=== PATIENT | male | born 1985 | race Caucasian/White ===

== ENCOUNTER 2019-02-15 00:25 | Emergency (ER) | payer BC, OTHER ==
[~2019-02-15] VITALS: Ht 175.3 cm; Wt 107.0 kg
[2019-02-15 07:47] VITALS: BP 118/73
== END 2019-02-15 18:29 ==
LOC: ED 05:09
DX: R45.851 Suicidal ideations (principal); F10.120 Alcohol abuse with intoxication, uncomplicated; Z87.891 Personal history of nicotine dependence
CPT/HCPCS: 36415; 80048; 80307; 82040; 85025; 99285